=== PATIENT | female | born 1975 | race Caucasian/White ===

== ENCOUNTER 2022-12-02 14:39 | Outpatient (CLI) | payer OTHER, SELFPAY | END 2022-12-02 14:40 | disposition home or self-care (01) | PROVIDERS: PCP Family Medicine; Visit Provider Family Medicine | DX: Z00.00 Encounter for general adult medical examination without abnormal findings (principal); D64.9 Anemia, unspecified; E53.8 Deficiency of other specified B group vitamins; E03.9 Hypothyroidism, unspecified; E78.5 Hyperlipidemia, unspecified; E66.01 Morbid (severe) obesity due to excess calories; R73.01 Impaired fasting glucose | CPT/HCPCS: 80053; 80061; 82306; 82607; 82728; 83540; 83550; 84443 ==

== ENCOUNTER 2022-12-14 10:29 | Outpatient (CLI) | payer OTHER, SELFPAY | END 2022-12-14 10:30 | disposition home or self-care (01) | PROVIDERS: PCP Family Medicine; Visit Provider Family Medicine | DX: Z00.00 Encounter for general adult medical examination without abnormal findings (principal); E78.5 Hyperlipidemia, unspecified; D64.9 Anemia, unspecified | CPT/HCPCS: 80061 ==

== ENCOUNTER 2023-08-30 07:40 | Outpatient (CLI) | payer BC, SELFPAY ==
--- OUTSIDE RECORDS SUMMARY | 2023-09-01 05:41 | XMS_ITS | Clinical Summary ---
Author Organization [facility] [facility] Address [place], [place] [address] Care Team Providers Care Clothespin Machine Operator Name Role Phone Christy Chaudhari Keeley Bridges, LP Unavailable [phone] Pcp, No Primary Care Provider Unavailabl e Allergies Active Allergy Reactions Criticality Noted Date Comments Sulfamethoxazole-Trimethoprim Nausea Only 06/21 Clindamycin Diarrhea 09/29/2017 Indomethacin Rash 09/29/2017 Morphine Rash 09/29/2017 Medications Medication Sig Dispensed Refills Start Date End Date Status Prasterone, DHEA, (DHEA) 50 mg cap Take by mouth. 0 09/29/2017 Acti ve cyanocobalamin (VITAMIN B-12) 1,000 mcg tablet Take 1 tablet by mouth once daily. 90 tablet 3 09/29/2017 Active nystatin powder (MYCOSTATIN) powderIndications :Tinea Apply 1 Strip topically to affected area(s) 3 times daily. 60 g 4 09/29/2017 Active levalbuterol (XOPENEX HFA) 45 mcg/actuation inhalerIndication s:Viral bronchitis Inhale 1-2 Puffs by mouth every 4 hours if needed for Shortness Of Breath, Wheezing or Other (Specify) (Cough). 1 Inhaler 2 01/03/2019 Active medication order composer Ubiquinol-active CoQ10 100mg daily 0 09/27/2020 Active cholecalciferol, Vitamin D3, 10,000 unit capsule Take 1 Capsule (10,000 units) by mouth once daily. 0 09/27/2020 Active echinacea purpurea aerial 350 mg cap Take by mouth. 0 09/27/2020 Active Ginkgo Biloba 40 mg cap Take 2 Capsules by mouth once daily. 0 09/27/2020 Active medication order composer Turmeric with Black Pepper Extract 300 mg daily 0 09/27/2020 Active medication order composer Quercetin 500mg daily 0 09/27/2020 Active medication order composer Folate 800 mcg daily 0 09/27/2020 Active Cranberry 500 mg cap Take 1 Capsule (500 mg) by mouth 2 times daily. 0 09/27/2020 Active medication order composer Raw B Complex 600mg daily ?? 0 09/27/2020 Active vitamin a (AQUASOL A) 10,000 unit capsule Take 1 Capsule (10,000 units) by mouth once daily. 0 03/07/2021 Active UNIRPMP-VKGX-PDCJ J-SHEV-KPOMPT ORAL 01/08/2021 Active zinc 50 mg tablet Take 1 Tablet (50 mg) by mouth once daily. 0 03/07/2021 Active hydrocortisone (ANUSOL-HC SUPPOSITORY) 25 mg suppositoryIndica tions:Hemorrhoids , unspecified hemorrhoid type Insert 1 Suppository (25 mg) rectally 2 times daily. 60 Suppository 03/07/2021 Active hydrocortisone (ANUSOL-HC) 2.5 % rectal creamIndications: Hemorrhoids, unspecified hemorrhoid type Apply topically to affected area(s) 2 times daily. 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 90 Tablet 3 12/29/2021 Active SUMAtriptan (IMITREX) 100 mg tabletIndications :Migraine syndrome Give at minimum 2hrs apart. Max Dose: 200mg per 24hrs.1 tablet 2 times daily if needed for Migraine. Give at minimum 2hrs apart. Max Dose: 200mg per 24hrs. 10 Tablet 3 12/29/2021 Active Metaxalone (Skelaxin) 800 mg tabletIndications :Arthralgia, unspecified joint Take 1 tab 2-3x/day as needed. 90 Tablet 1 12/29/2021 Active ciclopirox 0.77% cream (LOPROX) 0.77 % creamIndications: Tinea Apply topically to affected area(s) two times daily. 90 g 12/29/2021 Active buPROPion (WELLBUTRIN XL) 150 mg Extended-Release tabletIndications :Depression, major, single episode, moderate (HC) Take 1 Tablet (150 mg) by mouth every morning. 90 Tablet 3 12/29/2021 Active busPIRone (BUSPAR) 10 mg tabletIndications :Anxiety Take 1 Tablet (10 mg) by mouth two times daily. 180 Tablet 03/27/2022 Active evening primrose oil 1,300 mg cap Take by mouth. 0 05/12/2022 Acti ve Garlic 400 mg tab Take 1,200 mg by mouth. 0 05/12/2022 Active medication order composer Take by mouth. Black seed oil 100 mg 0 05/12/2022 Active medication order composer Take by mouth. detoxadine 3 drops daily 0 05/12/2022 Active citalopram (CELEXA) 40 mg tabletIndications :Anxiety,Depressi on, major, single episode, moderate (HC) Take 1 Tablet (40 mg) by mouth every morning. 90 Tablet 06/16/2022 Active omeprazole 20 mg tabletIndications :Chronic GERD Take 1 Tablet (20 mg) by mouth once daily before a meal. 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 Hiatal hernia 09/29/2017 Chronic GERD 09/29/2017 PCOS (polycystic ovarian syndrome) 09/29/2017 Endometriosis 09/29/2017 Migraine syndrome 09/29/2017 Depression, major, single episode, moderate 09/06 Anxiety 09/29/2017 Arthralgia 09/29/2017 Eye pressure 09/29/2017 Tinea 09/29/2017 Immunizations Name Administration Dates Next Due DTaP 06/06/1982, 9,1977,1977, 1977 Hepatitis B, Unspecified 12/05/2005,04/08/1996,0 03/08/1996 Influenza A (H1N1), Inactivated 01/14/2009 Influenza Virus, Unspecified 12/20/2017 Influenza, IIV3 (Age >=3 years) 11/22/2012,11/26,12/11/2010,11/28/2009 Influenza, IIV4 12/25/2019, 9,12/08/2016,12/03/2015, 11/27/2014,12/13/2013 Influenza, IIV4 (=>6mos) MDV 12/12/2015 MMR 07/15/1989,06/06/1978 Polio Virus, Unspecified 06/06/1982,06/06/1978,1 ,1977 Td (Age >=7 Years) 12/20/2005 Tdap 02/04/2012 Family History Medical History Relation Name Comments Cancer-breast Maternal Aunt Relation Name Status Comments Father Maternal Aunt Mother Social History Tobacco Use Types Packs/Day Years Used Date Smoking Tobacco: Former Smokeless Tobacco: Never Tobacco Cessation:Counseling Given: Yes Alcohol Use Standard Drinks/Week Comments Not Currently 0 (1 standard drink = 0.6 oz pur e alcohol) occasionally PHQ-2 Answer Date Recorded PHQ-2 TOTAL SCORE 1 02/05/2021 Social Connections Answer Date Recorded Frequency of Communication with Friends and Fami ly Not on file 02/27/2021 Financial Resource Strain Answer Date R ecorded Difficulty of Paying Living Expenses Not on file 02/27/2021 Difficulty of Paying Living Expenses Not on file 02/27/2021 Sex and Gender Information Value Date Recorded Sex Assigned at Not on file Gender Identity Not on file Sexual Orientation Not on file Obstetrics History Last Filed Vital Signs Vital Sign Reading Time Taken Comments Blood Pressure 117/79 12/29/2021 1:57 PM CDT Pulse 69 12/29/2021 1:57 PM CDT Temperature 37.2 ??C (98.9 ??F) 07/25/2021 11:12 AM C DT Respiratory Rate 16 05/26/2021 1:06 PM CDT Oxygen Saturation 97% 07/25/2021 11:12 AM CDT Inhaled Oxygen Concentration - - Weight 99.3 kg (219 lb) 12/29/2021 1:57 PM CDT Height 165.1 cm (5' 5) 12/29/2021 1:57 PM CDT Body Mass Index 36.44 12/29/2021 1:57 PM CDT Plan of Treatment Health Maintenance Due Date Last Done Comments HIV for age 15-65 02/26/1992 Hepatitis C screening for age 18-79 1995 Tetanus booster 02/03/2022 02/04/2012, 12/20/2005 Depression screening for age 12+ 02/06/2022 02/06/2021, 02/05/2021, 02/03/2021, Additional history exists Mammogram for age 45-75 2022 12/25/19 20, 11/15/2017, 11/10/2017 COVID-19 vaccine series (2022- season) 2022 BMI (ht and wt on same day) for age 18+ 12/29/2022 12/29/2021, 03/07/2021, 12/11/2020, Additional history exists Influenza for age 9-49 11/07/2023 , 12/07/2018, 12/20/2017, Additional history exists Lipids for age 45-75 11/07/2025 11/07/2020, 06/07/2020, 10/25/2019, Additional history exists Pap test for age 21-65 12/17/2027 , 12/16/2022, 12/25/2019, Additional history exists Colonoscopy through age 75 12/31/203012/31, 12/31/2020, 12/31/2020 Tdap Completed 02/04/2012 Pneumococcal series for age 6-64 Aged Out No longer eligible based on patient's age to complete this topic Procedures Procedure Name Priority Date/Time Associated Diagnosis Comments HPV THIN PREP Routine 12/16/2022 3:15 PM CDT COLONOSCOPY DIAGNOSTIC Routine 12/31/2020 12:53 PM CDT Chronic diarrhea Change in bowel habit LIPID PANEL W REFLEX MEASURED LDL Routine 11/07/2020 7:47 AM CDT Hyperlipidemia, unspecified hyperlipidemia type XR MAMMO BILAT SCREENING Routine 12/25/2019 12:07 PM CDT Encounter for screening mammogram for malignant neoplasm of breast from Last 3 Months or Most Recently Relevant to Health Maintenance Results * HPV HIGH RISK (12/16/2022 3:15 PM CDT) TYPE 16 Negative Negative 12/22/2022 11:45 AM CDT [facility] TYPE 18 Negative Negative 12/22/2022 11:45 AM CDT [facility] OTHER HIGH RISK TYPES Negative Negative 12/22/2022 11:45 AM CDT [facility] Other (Cervical/Vagina l) 12/16/2022 3:15 PM CDT 12/18/2022 12:[address] [facility] - 12/22/2022 11:45 AM CDT HPV types 16, 18, 31, 33, 35, 39, 45, 51, 52, 56, 58, 59, 66 and 68 DNA were undetectable or below the pre-set threshold. Methodology: Jyothi Aren 4800 HPV Test Qi Perez MD MICROBIOLOGY [facility] [address] [place] [address], * COLONOSCOPY (12/31/2020 1:08 PM CDT) 12/31/2020 1:08 PM CDT Narrative Transcriptions Rafal Molina MD - 12/31/2020 1:56 PM CDT Patient Name: Magdalena Mcmillan Procedure Date: 12/31/2020 Gender: Female Date of : 1975 Admit Type: Outpatient Procedure: Colonoscopy Proceduralist: Rafal Molina MD , Salima Goodman (Nurse) Referring MD: Linh Teague Indications/Pre-Op Diagnosis: Clinically significant diarrhea ofunexplained origin, This is the patient's firstcolonoscopy Medications: Fentanyl 100 micrograms IV, Midazolam 4 mgIV, The level of sedation administered wasmoderate Procedure Description: The patient had risks, benefits and alternatives explained to andgave informed consent. The patient had a stable cardiopulmonary status and judged an adequate candidate for conscious sedation. The Colonoscope was passed through the anus and advanced to 8 cm into the ileum. The colonoscopy was performed without difficulty. Thepatient tolerated the procedure well. The quality of the bowel preparationwas good. The terminal ileum, ileocecal valve, appendiceal orifice, and rectum were photographed. Estimated Blood Loss & Specimen: Estimated blood loss: none. Specimen collected - Yes and sent to Laboratory Findings: The perianal and digital rectal examinations were normal. The colon (entire examined portion) appeared normal. Biopsies for histology were taken with a cold forceps from the entire colon for evaluation of microscopic colitis. The terminal ileum appeared normal. Impressions/Post-Op Diagnosis: - The entire examined colon is normal. Biopsied. - The examined portion of the ileum was normal. Recommendation: - Patient has a contact number available for emergencies. The signsand symptoms of potential delayed complications were discussed with the patient. Return to normal activities tomorrow. Written discharge instructions were provided to the patient. - Resume previous diet. - Continue present medications. - Await pathology results. - Repeat colonoscopy in 10 years for screening purposes. Moderate Sedation: Moderate (conscious) sedation was administered by the endoscopy nurse and supervised by the endoscopist. The following parameters were monitored: oxygen saturation, heart rate, respiratory rate, blood pressure, adequacy of pulmonary ventilation and reponse to care. Please refer to the patient's medical record flowsheets and nursing notes for moderate sedation details. Total physician intraservice time was 15 minutes. Rafal Molina MD 12/31/2020 1:56:50 PM This report has been signed electronically. Note Initiated On: 12/31/2020 1:08 PM Procedure Code(s): --- Professional --- 64949, Colonoscopy, flexible; with biopsy, single or multiple Diagnosis Code(s): --- Professional --- R19.7, Diarrhea, unspecified CPT copyright 2020 [employer]. All rights reserved. The codes documented in this report are preliminary and upon safety technician reviewmay be revised to meet current compliance requirements. Scope In: 1:32:07 PM Scope Withdrawal Time 0 hours 8 minutes 9 seconds Scope Out: 1:44:02 PM Rafal Molina MD PROCEDURE ORD * (ABNORMAL) LIPID PANEL W REFLEX MEASURED LDL (11/07/2020 7:47 AM CDT) CHOLESTEROL,TOTAL 198 100 - 199 mg/dL 11/07/2020 5:50 PM CDT [facility] TRIGLYCERIDES 122 <150 mg/dL 11/07/2020 5:50 PM CDT [facility] HDL CHOLESTEROL 38(L) >40 mg/dL 5:50 PM CDT [facility] NON-HDL CHOLESTEROL 160(H) <145 mg/dl 11/07/2020 5:50 PM CDT [facility] CHOL/HDL RATIO 5.21(H) <4.50 11/07/2020 5:50 PM CDT [facility] LDL CHOLESTEROL 136(H) <=130 mg/dL 11/07/2020 5:50 PM CDT [facility] VLDL CHOLESTEROL 24 mg/dL 11/08/19 5:50 PM CDT [facility] PROVIDER ORDERED STATUS RANDOM 11/07/2020 5:50 PM CDT [facility] Blood BLOOD SPECIMEN / Unknown Venipuncture / Unknown 11/07/2020 7:47 AM CDT 11/07/2020 8:28 AM CDT Linh HUA CHEMISTRY [facility] [address] [place] [address], [place] * XR MAMMO BILAT SCREENING (12/25/2019 12:07 PM CDT) Anatomical Region Laterality Modality BREASTS, Breast Left, Breast Right Bilateral Mammography Impressions 12/26/2019 3:03 PM CDT ??There is no radiographic evidence for malignancy. ??Recommend annual mammograms. A lay language report of this examination will be provided to the patient. MAMMOGRAM ASSESSMENT: ??ACR 1 Negative Narrative 12/26/2019 3:03 PM CDT XR MAMMO BILAT SCREENING [[id number]] CLINICAL HISTORY: ??This is an asymptomatic 44 y.o. patient. INDICATION FOR EXAM: Mammogram Screening. TECHNIQUE: CC & MLO views were obtained. ??This digital study was evaluated with the assistance of Computer-Aided Detection. COMPARISON FILM: Yes 11/10/17 Outside Facility ?? FINDINGS: ??Mammographically, the breast tissue has scattered fibroglandular densities. ??There are no dominant masses, suspicious micro calcifications or areas of architectural distortion. Linh HUA MAMMO from Last 3 Months or Most Recently Relevant to Health Maintenance Care Teams Clothespin Machine Operator Relationship Specialty Start Date End Date Pcp, No . PCP - General 06/20/22 Watson, Christy Mina PsyD, LP [address] [facility] [address] [place] [address] Psychology 03/14/20
== END 2023-08-30 07:41 | disposition home or self-care (01) ==
LOC: NFLDREF 09-01 05:39
PROVIDERS: PCP Family Medicine; Referring Provider Family Medicine; Visit Provider Family Medicine
DX: D64.9 Anemia, unspecified (principal); E78.5 Hyperlipidemia, unspecified
CPT/HCPCS: 80061; 82728

== ENCOUNTER 2023-09-24 15:01 | Outpatient (CLI) | payer BC, SELFPAY ==
--- NOTE | 2023-09-24 15:00 | CRLHL7_ITS ---
For Patients: As a result of the Century Cures Act, medical imaging exams and procedure reports are released immediately into your electronic medical record. You may view this report before your referring provider. If you have questions, please contact your health care provider. INDICATION: excessive and frequent menstruation COMPARISON: none TECHNIQUE: 2D davey scale and color Doppler images were acquired of the pelvis using a transabdominal and transvaginal approach. FINDINGS: Sonographic images demonstrate a normal size and smooth outer contour of the uterus. Uterus measures 7.5 cm in length by 3.8 cm in AP diameter by 5.1 cm in transverse dimension. The myometrium has a normal uniform echotexture. Normal position of the IUD within the endometrial canal. Endometrium measures 3.1 millimeters. The right ovary measures 3.4 x 1.9 x 2.1 cm in size and the left ovary measures 2.6 x 2.1 x 1.7 cm. The ovaries demonstrate normal arterial and venous blood flow on color Doppler analysis. There are no suspicious fluid collections within the cul-de-sac. IMPRESSION: Normal position of the IUD within the endometrial canal. Endometrial thickness 3.1 millimeters. Dictated by Jacobo Morales MD @ 09/27/2023 11:55:59 AM (Electronically Signed)
--- OUTSIDE RECORDS SUMMARY | 2023-09-24 15:03 | XMS_ITS | Clinical Summary ---
Author Organization [employer] [facility] Address [place], [place] [address] Care Team Providers Care Projects Manager Name Role Phone Christy Chaudhari Keeley Bridges, LP Unavailable [phone] Pcp, No Primary Care Provider Unavailabl e [...] by mouth once daily. 0 03/07/2021 Active [id number] E-BMHI-HMBOZO ORAL 01/08/2021 Active zinc 50 mg tablet [...] 16 Negative Negative 12/22/2022 11:45 AM CDT [facility] TYPE 18 Negative Negative 12/22/2022 11:45 AM CDT [facility] OTHER HIGH RISK TYPES Negative Negative 12/22/2022 11:45 AM CDT [facility] Other (Cervical/Vagina l) 12/16/2022 3:15 PM CDT 12/18/2022 12:03 PM CDT Narrative [facility] - 12/22/2022 11:45 AM CDT HPV types 16, 18, 31, 33, 35, 39, 45, 51, 52, 56, 58, 59, 66 and 68 DNA were undetectable or below the pre-set threshold. Methodology: Jyothi Aren 4800 HPV Test Qi Perez MD MICROBIOLOGY [facility] [address] [place] [address], * COLONOSCOPY (12/31/2020 1:08 PM CDT) 12/31/2020 [...] 1:08 PM Procedure Code(s): --- Professional --- 77007, Colonoscopy, flexible; with biopsy, single or multiple Diagnosis Code(s): --- Professional --- R19.7, Diarrhea, unspecified CPT copyright 2020 [employer]. All rights reserved. The codes documented in this report are preliminary and upon electrical design engineer reviewmay be revised to meet current compliance requirements. Scope In: 1:32:07 PM Scope Withdrawal Time 0 hours 8 minutes 9 seconds Scope Out: 1:44:02 PM Rafal Molina MD PROCEDURE ORD * (ABNORMAL) LIPID PANEL W REFLEX MEASURED LDL (11/07/2020 7:47 AM CDT) CHOLESTEROL,TOTAL 198 100 - 199 mg/dL 11/07/2020 5:50 PM CDT [facility] TRIGLYCERIDES 122 <150 mg/dL 11/07/2020 5:50 PM CDT [facility] HDL CHOLESTEROL 38(L) >40 mg/dL 5:50 PM CDT [facility] NON-HDL CHOLESTEROL 160(H) <145 mg/dl 11/07/2020 5:50 PM CDT [facility] CHOL/HDL RATIO 5.21(H) <4.50 11/07/2020 5:50 PM CDT [facility] LDL CHOLESTEROL 136(H) <=130 mg/dL 11/07/2020 5:50 PM CDT [facility] VLDL CHOLESTEROL 24 mg/dL 11/08/19 5:50 PM CDT [facility] PROVIDER ORDERED STATUS RANDOM 11/07/2020 5:50 PM CDT [facility] Blood BLOOD SPECIMEN / Unknown Venipuncture / Unknown 11/07/2020 7:47 AM CDT 11/07/2020 8:28 AM CDT Linh HUA CHEMISTRY [facility] [address] [place] [address], [place] * XR MAMMO BILAT SCREENING (12/25/2019 12:07 PM CDT) Anatomical Region Laterality Modality BREASTS, Breast Left, Breast Right Bilateral Mammography Impressions 12/26/2019 3:03 PM CDT ??There is no radiographic evidence for malignancy. ??Recommend annual mammograms. A lay language report of this examination will be provided to the patient. MAMMOGRAM ASSESSMENT: ??ACR 1 Negative Narrative 12/26/2019 3:03 PM CDT XR MAMMO BILAT SCREENING [[id number]] CLINICAL HISTORY: ??This is an asymptomatic 44 [...] Recently Relevant to Health Maintenance Care Teams Projects Manager Relationship Specialty Start Date End Date Pcp, No . PCP - General 06/20/22 Watson, Christy Mina PsyD, LP [address] [facility] [address] [place] [address] Psychology 03/14/20
== END 2023-09-24 15:02 | disposition home or self-care (01) ==
LOC: US 15:02
PROVIDERS: PCP Family Medicine; Visit Provider Obstetrics & Gynecology
DX: N92.0 Excessive and frequent menstruation with regular cycle (principal); D50.0 Iron deficiency anemia secondary to blood loss (chronic)
CPT/HCPCS: 76830; 76856

== ENCOUNTER 2023-12-20 07:50 | Outpatient (CLI) | payer BC, SELFPAY ==
--- OUTSIDE RECORDS SUMMARY | 2023-12-20 11:08 | XMS_ITS | Clinical Summary ---
Author Organization [employer] [facility] Address [place], [place] [address] Care Team Providers Care Electronics Mechanic Name Role Phone Christy Chaudhari Keeley Bridges, LP Unavailable [phone] Pcp, No Primary Care Provider Unavailabl e [...] by mouth once daily. 0 03/07/2021 Active [id number] ORAL 01/08/2021 Active zinc 50 mg tablet [...] times daily. 28 g 3 03/07/2021 Active SUMAtriptan (IMITREX) 100 mg tabletIndications :Migraine [...] before a meal. 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 Hiatal hernia 09/29/2017 Chronic GERD 09/29/2017 PCOS (polycystic ovarian syndrome) 09/29/2017 Endometriosis 09/29/2017 Migraine syndrome 09/29/2017 Depression, major, single episode, moderate 09/06 Anxiety 09/29/2017 Arthralgia 09/29/2017 Eye pressure 09/29/2017 Tinea 09/29/2017 Encounters Date Type Department Care Team Description 10/02/2023 Refill [facility] [address] [place] [address] Linh Edmondson PA Refill Request (Synthroid) from Last 3 Months Immunizations Name Administration Dates Next Due DTaP [...] age 45-75 2022 12/25/19 20, 11/15/2017, 11/10/2017 BMI (ht and wt on same day) for age 18+ 12/29/2022 12/29/2021, 03/07/2021, 12/11/2020, Additional history exists COVID-19 vaccine series (2023- season) 2023 Influenza for age 9-49 11/07/2023 0, 12/07/2018, 12/20/2017, Additional history exists Lipids for [...] Procedure Name Priority Date/Time Associated Diagnosis Comments COLLAR FELLER THIN PREP PAP SCREEN IMAGED Routine 12/16/2022 3:15 PM CDT COLONOSCOPY DIAGNOSTIC [...] Recently Relevant to Health Maintenance Results * COLLAR FELLER THIN PREP PAP SCREEN IMAGED (12/16/2022 3:15 PM CDT) Case Report Gynecologic Cytology Report ? Case: [id number] ? Authorizing Provider: ??Qi Perez MD ??Collected: ? 12/16/2022 1515 ? Ordering Location: ? [facility] ?Received: ?12/18/2022 1203 ? First Screen: ?Lara Cintron ? Specimen: ?COLLAR FELLER ThinPrep Vial Screening, Cervical/Vaginal ? 12/24/2022 1:05 PM CDT [facility] INTERPRETATION/ RESULT NEGATIVE FOR INTRAEPITHELIAL LESION OR MALIGNANCY (NIL) (none) 12/24/2022 1:05 PM CDT [facility] IMEN ADEQUACY Satisfactory for evaluation Endocervical component present 12/24/2022 1:05 PM CDT [facility] HPV REQUEST HPV and PAP 12/24/2022 1:05 PM CDT [facility] Date of LMP 12/24/2022 1:05 PM CDT [facility] Comment:unknown Last Pap Date 12/17/2017 12/24/2022 1:05 PM CDT [facility] Last Pap Result NIL 1:05 PM CDT [facility] Abnormal Pap or Dalton Bx in last 5 years No 12/24/2022 1:05 PM CDT [facility] Dalton Bx Done Today No 12/24/2022 1:05 PM CDT [facility] Additional Information 12/24/2022 1:05 PM CDT [facility] Comment: Interpreted at [facility] - [address] [place] [id number] Automated Review Successful 12/24/2022 1:05 PM CDT [facility] Comment:Specimen processed s uccessfully by automated customer service representative device, ThinPrep Imaging System, [employer] ANCILLARY TESTING COLLAR FELLER HPV Ordered, Please see separate report 12/24/2022 1:05 PM CDT [facility] Note The pap test is a screening technique, not a diagnostic procedure. It is used primarily to screen for squamous cancers and precursor lesions. Published studies have shown that it is subject to both false negative and false positive results. The pap test should not be used as the sole means to diagnose or exclude pre-malignant and malignant lesions. 12/24/2022 1:05 PM CDT [facility] Other (Cervical/Vagina l) 12/16/2022 3:15 PM CDT 12/18/2022 12:03 PM CDT Qi Perez MD PATHOLOGY/CYTOLO GY [facility] [address] [place] [address], [place] * COLONOSCOPY (12/31/2020 1:08 PM CDT) 12/31/2020 1:08 PM CDT Narrative Transcriptions Rafal Molina MD - 12/31/2020 1:56 PM CDT Patient Name: Magdalena Mcmillan Procedure Date: 12/31/2020 Gender: Female Date of : 1975 Admit Type: Outpatient Procedure: Colonoscopy Proceduralist: Rafal Molina MD , Salima Goodman (Nurse) Referring MD: Linh Edmondson Indications/Pre-Op Diagnosis: Clinically significant diarrhea ofunexplained origin, [...] 1:08 PM Procedure Code(s): --- Professional --- 39970, Colonoscopy, flexible; with biopsy, single or multiple Diagnosis Code(s): --- Professional --- R19.7, Diarrhea, unspecified CPT copyright 2020 [employer]. All rights reserved. The codes documented in this report are preliminary and upon ethylbenzene converter helper reviewmay be revised to meet current compliance requirements. Scope In: 1:32:07 PM Scope Withdrawal Time 0 hours 8 minutes 9 seconds Scope Out: 1:44:02 PM Rafal Molina MD PROCEDURE ORD * (ABNORMAL) LIPID PANEL W REFLEX MEASURED LDL (11/07/2020 7:47 AM CDT) CHOLESTEROL,TOTAL 198 100 - 199 mg/dL 11/07/2020 5:50 PM CDT [facility] TRIGLYCERIDES 122 <150 mg/dL 11/07/2020 5:50 PM CDT [facility] HDL CHOLESTEROL 38(L) >40 mg/dL 5:50 PM CDT [facility] NON-HDL CHOLESTEROL 160(H) <145 mg/dl 11/07/2020 5:50 PM CDT [facility] CHOL/HDL RATIO 5.21(H) <4.50 11/07/2020 5:50 PM CDT [facility] LDL CHOLESTEROL 136(H) <=130 mg/dL 11/07/2020 5:50 PM CDT [facility] VLDL CHOLESTEROL 24 mg/dL 11/08/19 5:50 PM CDT [facility] PROVIDER ORDERED STATUS RANDOM 11/07/2020 5:50 PM CDT [facility] Blood BLOOD SPECIMEN / Unknown Venipuncture / Unknown 11/07/2020 7:47 AM CDT 11/07/2020 8:28 AM CDT Linh HUA CHEMISTRY [facility] [address] [place] [address], [place] * XR MAMMO BILAT SCREENING (12/25/2019 12:07 PM CDT) Anatomical Region Laterality Modality BREASTS, Breast Left, Breast Right Bilateral Mammography Impressions 12/26/2019 3:03 PM CDT ??There is no radiographic evidence for malignancy. ??Recommend annual mammograms. A lay language report of this examination will be provided to the patient. MAMMOGRAM ASSESSMENT: ??ACR 1 Negative Narrative 12/26/2019 3:03 PM CDT XR MAMMO BILAT SCREENING [[id number]] CLINICAL HISTORY: ??This is an asymptomatic 44 [...] Recently Relevant to Health Maintenance Care Teams Electronics Mechanic Relationship Specialty Start Date End Date Pcp, No . PCP - General 06/20/22 Christy Chaudhari PsyD, LP [address] [facility] [address] [place] [address] Psychology 03/14/20
== END 2023-12-20 07:51 | disposition home or self-care (01) ==
LOC: NFLDREF 11:07
PROVIDERS: PCP Family Medicine; Referring Provider Family Medicine; Visit Provider Family Medicine
DX: Z00.00 Encounter for general adult medical examination without abnormal findings (principal); D50.0 Iron deficiency anemia secondary to blood loss (chronic); E78.5 Hyperlipidemia, unspecified; E53.8 Deficiency of other specified B group vitamins; E03.8 Other specified hypothyroidism; E06.3 Autoimmune thyroiditis; R53.83 Other fatigue; E28.2 Polycystic ovarian syndrome; E55.9 Vitamin D deficiency, unspecified; R73.9 Hyperglycemia, unspecified; M81.0 Age-related osteoporosis without current pathological fracture; R73.03 Prediabetes; E66.01 Morbid (severe) obesity due to excess calories
CPT/HCPCS: 80053; 80061; 82306; 82607; 82728; 83540; 83550; 84439; 84443

== ENCOUNTER 2024-03-07 14:26 | Outpatient (CLI) | payer BC, SELFPAY ==
--- NOTE | 2024-03-07 14:40 | CRLHL7_ITS ---
For Patients: As a result of the Cures Act, medical imaging exams and procedure reports are released immediately into your electronic medical record. You may view this report before your referring provider. If you have questions, please contact your health care provider. BILATERAL SCREENING MAMMOGRAM WITH COMPUTER-AIDED DETECTION AND TOMOSYNTHESIS TECHNIQUE: CC and MLO views were obtained. These mammographic images have been obtained using full-field digital technique. These mammographic images were interpreted with the benefit of computer-aided detection. Breast tomosynthesis was used in this interpretation. COMPARISON FILM: 11/10/17, 11/15/17 (left only). FINDINGS: The breasts are almost entirely fatty. IMPRESSION: There is no radiographic evidence for malignancy. ASSESSMENT: BI-RADS Category 1: Negative RECOMMENDATION: Routine screening mammogram in 1 year. A lay language report of this examination will be provided to the patient. JACOBO DELGADO M.D. Diagnostic Radiologist [email or web address] Transcribed: 03/09/2024, 2:[address]/Dictated by: Jacobo Delgado MD @ 03/09/2024 8:31:00 AM (Electronically Signed)
== END 2024-03-07 14:27 | disposition home or self-care (01) ==
LOC: MAMMO 14:26
PROVIDERS: PCP Family Medicine; Visit Provider Family Medicine
DX: Z12.31 Encounter for screening mammogram for malignant neoplasm of breast (principal)
CPT/HCPCS: 77063; 77067

== ENCOUNTER 2024-06-07 08:01 | Day surgery (SDC) | payer BC, SELFPAY ==
[2024-06-07] VITALS (12 sets, daily range): BP systolic 102–123; BP diastolic 63–86; PULSE 60–74; RESP 14–18; TEMP 36.3–36.5; O2SAT 95–99; BMI 49.1
[2024-06-07 08:23] LABS: Ur HCG Qualitative* Negative (Negative)
[2024-06-07] MEDS: LACTATED RINGERS 1000 ML 1,000 ML 100 ML IV (08:35)
[2024-06-07] MEDS: SODIUM CHLORIDE 0.9 % (FLUSH) 10 ML SYRINGE IVF (08:35)
--- NOTE | 2024-06-07 08:54 | W.PM.H&PU ---
History & Physical Update History & Physical Update H&P Reviewed and patient assessed: No changes noted
[2024-06-07] MEDS: CEFAZOLIN 2 GM in 0.9 % SODIUM CHLORIDE Mini-bag 100 ML IVPB (10:43)
[2024-06-07] MEDS: ROPIVACAINE 0.5% 30 ML 150 MG INJECTION (10:45)
--- NOTE | 2024-06-07 11:14 | P.ORPRC_ITS ---
Procedure Note Date of procedure: 06/07/24 Procedure: PREOPERATIVE DIAGNOSIS: 1. Right knee medial meniscus tear POSTOPERATIVE DIAGNOSIS: 1. Right knee medial meniscus tear 2. 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 Right knee arthroscopic partial medial meniscectomy SURGEON: Milton Bhatt M.D. MEDICAL ASSISTANT CARDIOLOGY: BRITNEY Ugarte. Of note, an social services assistant was critical for this case to aid in patient positioning, knee manipulation, instrument exchange, and closure. ANESTHESIA: Spinal EBL: 2ml TOURNIQUET: 30 min at 300 torr COMPLICATIONS: None evident INDICATIONS: The patient is a pleasant 49-year-old female who has experienced right knee pain particularly with any twisting or turning. Physical exam was concerning for medial meniscus tear, this was confirmed on MRI. Additionally, attempted nonoperative management has been tried, and failed. Thus, surgery was recommended. FINDINGS: Posterior horn medial meniscus tearing approaching the posterior root. Primarily radial type tear but some extension into the posterior horn making it more complex. Grade 3 chondromalacia broadly throughout the medial femoral condyle from the mid-articulating line to the more medial aspect. Also grade 3 chondromalacia broadly throughout the patella. Grade 2 chondromalacia trochlear groove. Lateral meniscus intact. ACL and PCL intact. DESCRIPTION OF PROCEDURE: After a thorough discussion of risks, benefits, and alternatives, the patient was brought to the operating room and placed upon the operating table. Induction of anesthesia was undertaken as previously noted. 3 g IV Ancef was administered within 1 hr of incision preoperatively. Appropriate time-out was performed identifying proper patient, site, and procedure. The right lower extremity was prepped and draped in the appropriate sterile fashion using ChloraPrep. The limb was exsanguinated and tourniquet inflated. Anterolateral and anteromedial portals were established with an 11 blade, and a diagnostic arthroscopy was performed. This identified the findings as noted above. Following the diagnostic arthroscopy, a partial medial menisectomy was performed with the combination of basket forceps and a motorized shaver. Following this, the meniscus was re-probed and found to be stable. Approximately 15-20% of the overall meniscus required resection. At this stage, the shaver was reinserted into the suprapatellar pouch and all remaining meniscal debris was evacuated. Instruments were removed, excess fluid was drained, and closure performed with 4-0 Monocryl with Steri-Strips. Dressings were applied, the tourniquet deflated, and the patient was awoken from anesthesia and transferred to the PACU in stable condition. PLAN: 1. Weightbear as tolerated operative extremity. Crutch / walker ambulation assistance PRN. 2. Ice, acetominophen and/or ibuprofen for pain as needed. 3. Knee range of motion and quad sets/straight leg raise regularly 4. Follow up with PA visit in 1-2 weeks for a wound check and possibly to initiate physical therapy.
--- NOTE | 2024-06-15 12:13 | P.ANES_ITS ---
Anesthesia Charges Start Date/Time Anesthesia Start Date: 06/15/24 Anesthesia Start Time: 10:20 Stop Date/Time Anesthesia Stop Date: 06/15/24 Anesthesia Stop Time: 11:22 Coding CPT Codes CPT Codes: ANESTH KNEE JOINT SURGERY - 20070 ([id number]) QZ - MEDICAL RECRUITER SVC W/O HAIR DRESSER BY , P2 - PATIENT W/MILD SYST DISEASE
--- NOTE | 2024-06-15 12:13 | W.ANESCHARGE ---
Anesthesia Charges Start Date/Time Anesthesia Start Date: 06/15/24 Anesthesia Start Time: 10:20 Stop Date/Time Anesthesia Stop Date: 06/15/24 Anesthesia Stop Time: 11:22 Coding CPT Codes CPT Codes: ANESTH KNEE JOINT SURGERY - 90715 ([id number]) QZ - GLUE LINE OPERATOR SVC W/O WELLNESS TRAINER BY , P2 - PATIENT W/MILD SYST DISEASE
== END 2024-06-07 12:58 | disposition home or self-care (01) ==
LOC: OR 08:05
PROVIDERS: Nurse Anesthetist, Certified Registered; PCP Physician Assistant Medical; Visit Provider Orthopaedic Surgery Sports Medicine
PROC: (CPT 29870; principal; 2024-06-07 10:15)
DX: S83.231A Complex tear of medial meniscus, current injury, right knee, initial encounter (principal); M22.41 Chondromalacia patellae, right knee; R73.03 Prediabetes; E66.01 Morbid (severe) obesity due to excess calories; Z68.41 Body mass index [BMI] 40.0-44.9, adult
CPT/HCPCS: 29881; 01400; 81025; J0690; J1100; J2250; J2405; J2704; J2795; J3010; J7120

== ENCOUNTER 2025-02-14 08:46 | Day surgery (SDC) | payer BC, SELFPAY ==
[2025-02-14] VITALS (17 sets, daily range): BP systolic 63–122; BP diastolic 48–84; PULSE 65–89; RESP 14–18; TEMP 36.1–36.6; O2SAT 94–100; BMI 50.3
[2025-02-14] MEDS: LACTATED RINGERS 1000 ML 1,000 ML 100 ML IV ×2 (08:25→12:35)
[2025-02-14] MEDS: SODIUM CHLORIDE 0.9 % (FLUSH) 10 ML SYRINGE IVF (09:24)
--- NOTE | 2025-02-14 09:39 | W.PM.H&PU ---
History & Physical Update History & Physical Update H&P Reviewed and patient assessed: No changes noted
--- NOTE | 2025-02-14 11:24 | P.ORPRC_ITS ---
Procedure Note Date of procedure: 02/14/25 Procedure: PREOPERATIVE DIAGNOSIS: 1. Left knee medial meniscus tear POSTOPERATIVE DIAGNOSIS: 1. Left knee medial meniscus tear, posterior horn 2. Left knee lateral meniscus tear, anterior horn to midbody 2. Left knee grade 3-4 chondromalacia trochlear groove, lateral femoral condyle weight-bearing portion, and medial femoral condyle distal central portion PROCEDURE: 1. Left knee arthroscopic partial medial and lateral meniscectomy SURGEON: Milton Bhatt M.D. ANTISQUEAK FILLER: Deejay MUNIZ. Of note, an business office assistant was critical for this case to aid in patient positioning, knee manipulation, instrument exchange, and closure. ANESTHESIA: Spinal EBL: 2ml TOURNIQUET: 25 minutes at 300 torr COMPLICATIONS: None evident INDICATIONS: The patient is a pleasant 49-year-old female who has experienced left knee pain particularly with any twisting or turning. Physical exam was concerning for medial meniscus tear, this was confirmed on MRI. Additionally, attempted nonoperative management has been tried, and failed. Thus, surgery was recommended. FINDINGS: Grade 3-4 chondromalacia trochlear groove centrally in a region measuring 8 mm in diameter. Patella showed grade 2 chondromalacia diffusely. Lateral compartment showed complex tearing of the anterior horn to midbody lateral meniscus. The inner meniscal ligament was still intact. Posterior an anterior roots were intact. Lateral femoral condyle grade 3-4 chondromalacia in the central stripe that expanded as 1 moved distal. The striped more proximal posterior was approximately 5 mm wide, but it extended approximately 20 mm in length and again as it extended distally it widened to approximately 15 mm in width. ACL showed significant striations and poor vascularity. PCL was intact and robust. Medial compartment showed tearing of the posterior horn. Also grade 3-4 chondromalacia distal weight-bearing portion medial femoral condyle measuring approximately 7 x 10 mm region. No loose bodies evident. DESCRIPTION OF PROCEDURE: After a thorough discussion of risks, benefits, and alternatives, the patient was brought to the operating room and placed upon the operating table. Induction of anesthesia was undertaken as previously noted. 3 g IV Ancef was administered within 1 hr of incision preoperatively. Appropriate time-out was performed identifying proper patient, site, and procedure. The left lower extremity was prepped and draped in the appropriate sterile fashion using ChloraPrep. The limb was exsanguinated and tourniquet inflated. Anterolateral and anteromedial portals were established with an 11 blade, and a diagnostic arthroscopy was performed. This identified the findings as noted above. Following the diagnostic arthroscopy, a partial medial and lateral menisectomy was performed with the combination of basket forceps and a motorized shaver. Following this, the meniscus was re-probed and found to be stable. Approximately 20-25 % of the overall lateral meniscus and 10% of the posterior horn medial meniscus required resection. At this stage, the shaver was reinserted into the suprapatellar pouch and all remaining meniscal debris was evacuated. Instruments were removed, excess fluid was drained, and closure performed with 4-0 Monocryl with Steri-Strips. Dressings were applied, the tourniquet deflated, and the patient was awoken from anesthesia and transferred to the PACU in stable condition. PLAN: 1. Weightbear as tolerated operative extremity. Crutch / walker ambulation assistance PRN. Straight leg raise to be initiated starting tomorrow by the patient. 2. Ice, acetominophen and/or ibuprofen for pain as needed. 3. Knee range of motion and quad sets/straight leg raise regularly 4. Follow up with PA visit in 7-10 days. for a wound check. Initiate physical therapy at that time
[2025-02-14] MEDS: ROPIVACAINE 0.5% 30 ML 150 MG INJECTION (11:25)
--- NOTE | 2025-02-14 11:45 | P.ANES_ITS ---
Anesthesia Charges Start Date/Time Anesthesia Start Date: 02/14/25 Anesthesia Start Time: 10:32 Stop Date/Time Anesthesia Stop Date: 02/14/25 Anesthesia Stop Time: 11:37 Coding CPT Codes CPT Codes: ANESTH KNEE JOINT SURGERY - 04580 ([id number]) P3 - PATIENT W/SEVERE SYS DISEASE, QK - NATURAL SCIENCES PROFESSOR 2-4 CNCRNT ANES PROC
--- NOTE | 2025-02-14 11:45 | W.ANESCHARGE ---
Anesthesia Charges Start Date/Time Anesthesia Start Date: 02/14/25 Anesthesia Start Time: 10:32 Stop Date/Time Anesthesia Stop Date: 02/14/25 Anesthesia Stop Time: 11:37 Coding CPT Codes CPT Codes: ANESTH KNEE JOINT SURGERY - 55914 ([id number]) P3 - PATIENT W/SEVERE SYS DISEASE, QK - LIGHTING FIXTURE INSTALLER 2-4 CNCRNT ANES PROC
[2025-02-14] MEDS: PHENYLEPHRINE 100 MCG/ML SYRINGE IVP (11:51)
--- NOTE | 2025-02-14 11:51 | P.ANES_ITS ---
Anesthesia Charges Start Date/Time Anesthesia Start Date: 02/14/25 Anesthesia Start Time: 10:32 Stop Date/Time Anesthesia Stop Date: 02/14/25 Anesthesia Stop Time: 11:37 Coding CPT Codes CPT Codes: ANESTH KNEE JOINT SURGERY - 36127 ([id number]) QK - DEVELOPMENT WRITER 2-4 CNCRNT ANES PROC, QX - [place]IN MATE SVC W/ MD MED DIRECTION, P3 - PATIENT W/SEVERE SYS DISEASE
--- NOTE | 2025-02-14 11:51 | W.ANESCHARGE ---
Anesthesia Charges Start Date/Time Anesthesia Start Date: 02/14/25 Anesthesia Start Time: 10:32 Stop Date/Time Anesthesia Stop Date: 02/14/25 Anesthesia Stop Time: 11:37 Coding CPT Codes CPT Codes: ANESTH KNEE JOINT SURGERY - 12109 ([id number]) QK - SEWING PATTERN LAYOUT TECHNICIAN 2-4 CNCRNT ANES PROC, QX - EXPERIMENTAL MECHANIC SPACECRAFT SVC W/ MD MED DIRECTION, P3 - PATIENT W/SEVERE SYS DISEASE
--- NOTE | 2025-02-14 12:04 | SUR.PHASEI ---
Patient feeling her stomach has a burning sensation. She is tearful and does not like the feeling, she is very uncomfortable. Anesthesia consulted for best choice of medication. Versed 2 mg was ordered.
[2025-02-14] MEDS: MIDAZOLAM HCL 1 MG/ML inj 2 MG IVP (12:07)
--- NOTE | 2025-02-14 12:23 | SUR.PHASEI ---
Patient much more comfortable. Meets discharge criteria from PACU I
[2025-02-14] MEDS: IBUPROFEN 200 MG TABLET 600 MG PO (13:06)
[2025-02-14] MEDS: ACETAMINOPHEN 500 MG TABLET PO (13:06)
== END 2025-02-14 14:15 | disposition home or self-care (01) ==
PROVIDERS: PCP Physician Assistant Medical; Visit Provider Orthopaedic Surgery Sports Medicine
PROC: (CPT 29870; principal; 2025-02-14 10:45)
DX: S83.272A Complex tear of lateral meniscus, current injury, left knee, initial encounter (principal); S83.242A Other tear of medial meniscus, current injury, left knee, initial encounter; M94.262 Chondromalacia, left knee
CPT/HCPCS: 29880; 01400; A9270; J0690; J1100; J2250; J2371; J2405; J2704; J2795; J3010; J7120